=== PATIENT | female | born 1935 | race Caucasian/White ===

== ENCOUNTER 2017-04-13 22:23 | Emergency (ER) | payer MEDICARE ==
[~2017-04-13] VITALS: Ht 172.7 cm; Wt 43.6 kg
[~2017-04-13 22:23] MED LIST: COMMODE; ONDA4TAB59 PO; OXYC-134 PO
[2017-04-13 23:23] VITALS: BP 153/96
== END 2017-04-13 23:26 | disposition home or self-care (01) ==
LOC: ER 22:24
DX: I10 Essential (primary) hypertension (principal); M79.1 Myalgia; Z88.6 Allergy status to analgesic agent; Z88.8 Allergy status to other drugs, medicaments and biological substances; Z91.018 Allergy to other foods
CPT/HCPCS: 99284

== ENCOUNTER 2018-10-17 16:05 | Inpatient (IN) | payer MEDICARE ==
[~2018-10-17] VITALS: Ht 157.5 cm; Wt 40.9 kg
[2018-10-17] MEDS ORDERED: CefTRIAXone 2gm/D5W 50ml 50 ML IV ONE (16:25)
[2018-10-17] MEDS ORDERED: normal saline 1000ML IV soln IV ONE (16:25)
--- NOTE | 2018-10-17 17:00 | NUR ---
To CT via [facility].
[2018-10-17 17:07] LABS: BASOPHILS # (AUTO) 0.1 X10'3 (0-0.2); BASOPHILS % (AUTO) 0.6 % (0-1); EOSINOPHILS # (AUTO) 0.2 X10'3 (0-0.9); HEMATOCRIT 33.1 % (35.0-45.0); HEMOGLOBIN 10.7 g/dl (12.0-16.0); LYMPHOCYTES # (AUTO) 1.3 X10'3 (1.1-4.8); LYMPHOCYTES % (AUTO) 15.1 % (21-51); MEAN CORPUSCULAR HEMOGLOBIN 29.4 PG (27.0-31.0); MEAN CORPUSCULAR HGB CONC 32.5 g/dL (33.0-36.5); MEAN CORPUSCULAR VOLUME 90.4 FL (78-98); MEAN PLATELET VOLUME 7.1 FL (7.4-10.4); MONOCYTES # (AUTO) 1.2 X10'3 (0-0.9); MONOCYTES % (AUTO) 14.2 % (2-12); NEUTROPHILS % (AUTO) 68.1 % (42-75); PLATELET COUNT 367 X10'3 (140-440); RED BLOOD COUNT 3.66 X10'6 (4.20-5.60); RED CELL DISTRIBUTION WIDTH 15.1 % (11.5-14.5); WHITE BLOOD COUNT 8.8 X10'3 (4.5-11.0)
--- NOTE | 2018-10-17 17:09 | NUR ---
PT BACK FROM CT
[2018-10-17 17:10] LABS: CLARITY,URINE TURBID (Clear); COLOR,URINE STRAW (Yellow); GLUCOSE, URINE NEGATIVE (Neg); KETONES,URINE NEGATIVE (Neg); LEUKOCYTE ESTERASE ,URINE LARGE (Neg); NITRITES, URINE NEGATIVE (Neg); OCCULT BLOOD,URINE MODERATE (Neg); PROTEIN,URINE 100 mg/dl (Neg); UROBILINOGEN,URINE 0.2 E.U/dL (0.2-1.0)
[2018-10-17 17:13] LABS: UA COLLECTION TYPE FOLEY CATH
[2018-10-17 17:20] LABS: PARTIAL THROMBOPLASTIN TIME 26 SECONDS (22-32)
[2018-10-17 17:30] LABS: SQUAMOUS EPITHELIAL CELL,UR FEW /LPF (FEW)
[2018-10-17 17:31] LABS: MUCUS STRANDS NONE SEEN /LPF (Neg); TRANSITIONAL EPI CELLS,URINE FEW /HPF; WBC,URINE TNTC /HPF (0-4)
[2018-10-17 17:32] LABS: RENAL CELLS, URINE MODERATE /HPF
[2018-10-17 17:33] LABS: BACTERIA,URINE FEW /HPF (Neg); RBC,URINE 0-2 /HPF (0-2); YEAST FEW /HPF (NEGATIVE)
[2018-10-17 17:39] LABS: ALANINE AMINOTRANSFERASE 15 U/L (12-78); ALBUMIN 2.8 G/DL (3.4-5.0); ALBUMIN/GLOBULIN RATIO 0.5 (1.1-1.5); ALKALINE PHOSPHATASE 84 IU/L (46-116); ANION GAP 5 (8-16); ASPARTATE AMINO TRANSFERASE 11 U/L (10-37); BILIRUBIN,TOTAL 0.1 MG/DL (0.1-1.0); BLOOD UREA NITROGEN 34 MG/DL (7-18); BUN/CREATININE RATIO 28.3 (6.6-38.0); CALCIUM 9.1 MG/DL (8.5-10.1); CHLORIDE 104 MMOL/L (99-107); GLUCOSE 110 MG/DL (70-104); MAGNESIUM 2.1 MG/DL (1.5-2.4); POTASSIUM 4.3 MMOL/L (3.5-5.1); SODIUM 141 MMOL/L (135-145); TOTAL CARBON DIOXIDE 32.2 MMOL/L (24-32); eGFR 43 ML/MIN
[2018-10-17] MEDS ORDERED: magnesium 4gm in 100ml NS 100 ML IV PRN (18:15)
[2018-10-17] MEDS ORDERED: magnesium 2GM in 50ml NS 50 ML IV PRN (18:15)
[2018-10-17] MEDS ORDERED: acetaminophen 325mg tablet PO PRN ×2 (18:15)
[2018-10-17] MEDS ORDERED: potassium Cl 20 mEq SR tablet PO PRN ×2 (18:15)
[2018-10-17] MEDS ORDERED: magnesium Cl slow-release 64mg tablet PO PRN (18:15)
[2018-10-17] MEDS ORDERED: potassium CL 10mEq/100ml bag 100 ML IV PRN ×2 (18:15)
[2018-10-17] MEDS ORDERED: mag hydrox/Alum hydrox/simeth 30ml oral suspension PO PRN (18:15)
[2018-10-17] MEDS ORDERED: HYDROcodone/acetaminophen 5mg/325mg tablet PO PRN (18:15)
[2018-10-17] MEDS ORDERED: ondansetron/PF 4mg/2ml inj IV PRN (18:15)
[2018-10-17] MEDS ORDERED: magnesium hydroxide 30ml (MOM) UD suspension PO PRN (18:15)
[2018-10-17] MEDS: normal saline 1000ml 1,000 ML IV SCH (18:24)
[2018-10-17] MEDS ORDERED: ATR0.5NEB NEB (18:28)
[2018-10-17] MEDS ORDERED: HYDR-4383 PO (18:42)
[2018-10-17] MEDS ORDERED: MELA3TAB64 PO (18:42)
[2018-10-17] MEDS ORDERED: FURO-150 PO (18:42)
[2018-10-17] MEDS ORDERED: IPRA4AER IH (18:42)
[2018-10-17] MEDS ORDERED: OMEP40CA13 PO (18:42)
[2018-10-17] MEDS ORDERED: METH1TAB32 PO (18:42)
[2018-10-17] MEDS ORDERED: METO1TAB25 PO (18:42)
[2018-10-17] MEDS ORDERED: ESCI5TAB PO (18:42)
[2018-10-17] MEDS ORDERED: MAGN400O6 PO (18:42)
[2018-10-17] MEDS ORDERED: MEMA5TAB PO (18:42)
[2018-10-17] MEDS ORDERED: FLEC100T2 PO ×2 (18:42→19:29)
[2018-10-17] MEDS ORDERED: APIX2.5T PO (18:42)
[2018-10-17] MEDS ORDERED: NEUPHOSK PO (18:42)
--- NOTE | 2018-10-17 18:42 | NUR ---
PT O2 90% ON ROOM AIR. PLACED PT ON NASAL CANNULA AT 3L. O2 NOW 95%.
[2018-10-17] MEDS ORDERED: ESCI20TA PO (19:29)
[2018-10-17] MEDS ORDERED: ipratropium/albuterol 3ml nebule IH PRN (19:40)
[2018-10-17] MEDS ORDERED: heparin, porcine 5000 units/ml vial SQ SCH (20:00)
[2018-10-17] MEDS: memantine 5mg tablet PO SCH (20:14)
[2018-10-17] MEDS: apixaban 2.5mg tablet PO SCH (20:14)
[2018-10-17] MEDS ORDERED: temazepam 15mg capsule PO PRN (21:00)
--- NOTE | 2018-10-17 21:20 | NUR ---
Received report on patient from SACK SEWERBRET Ackerman. Patient to follow shortly.
--- NOTE | 2018-10-17 21:30 | NUR ---
Patient arrived to floor via gurney accompanied by her daughter. Patient settled into room and helped to BSC. Patient was unable to go at this time, so helped back into bed, and made comfortable.
[2018-10-17 21:45] VITALS: BP 115/72
[2018-10-17] MEDS: Melatonin 3mg tablet PO SCH (22:10)
[2018-10-18] VITALS: BP 139/10
[2018-10-18] MEDS: normal saline 1000ml 1,000 ML IV SCH ×2 (03:51→14:36)
[2018-10-18 04:50] LABS: BASOPHILS % (AUTO) 0.7 % (0-1); EOSINOPHILS # (AUTO) 0.2 X10'3 (0-0.9); EOSINOPHILS % (AUTO) 2.8 % (0-6); HEMATOCRIT 27.6 % (35.0-45.0); HEMOGLOBIN 8.8 g/dl (12.0-16.0); LYMPHOCYTES # (AUTO) 1.3 X10'3 (1.1-4.8); LYMPHOCYTES % (AUTO) 20.3 % (21-51); MEAN CORPUSCULAR HEMOGLOBIN 29.1 PG (27.0-31.0); MEAN CORPUSCULAR HGB CONC 31.9 g/dL (33.0-36.5); MEAN PLATELET VOLUME 7.1 FL (7.4-10.4); MONOCYTES # (AUTO) 0.8 X10'3 (0-0.9); MONOCYTES % (AUTO) 11.5 % (2-12); NEUTROPHILS # (AUTO) 4.3 X10'3 (1.8-7.7); NEUTROPHILS % (AUTO) 64.7 % (42-75); PLATELET COUNT 288 X10'3 (140-440); RED BLOOD COUNT 3.03 X10'6 (4.20-5.60); RED CELL DISTRIBUTION WIDTH 15.1 % (11.5-14.5); WHITE BLOOD COUNT 6.6 X10'3 (4.5-11.0)
[2018-10-18 05:01] LABS: ALANINE AMINOTRANSFERASE 10 U/L (12-78); ALBUMIN/GLOBULIN RATIO 0.5 (1.1-1.5); ALKALINE PHOSPHATASE 58 IU/L (46-116); ANION GAP 5 (8-16); ASPARTATE AMINO TRANSFERASE 7 U/L (10-37); BILIRUBIN,TOTAL 0.2 MG/DL (0.1-1.0); BLOOD UREA NITROGEN 25 MG/DL (7-18); BUN/CREATININE RATIO 29.4 (6.6-38.0); CHLORIDE 111 MMOL/L (99-107); CREATININE 0.85 MG/DL (0.40-0.90); GLUCOSE 83 MG/DL (70-104); MAGNESIUM 1.7 MG/DL (1.5-2.4); PHOSPHORUS 3.1 MG/DL (2.3-4.5); POTASSIUM 4.1 MMOL/L (3.5-5.1); SODIUM 144 MMOL/L (135-145); TOTAL CARBON DIOXIDE 27.8 MMOL/L (24-32); TOTAL PROTEIN 6.1 G/DL (6.4-8.2); eGFR 64 ML/MIN
--- NOTE | 2018-10-18 06:00 | NUR ---
Patient in room [facility]. I have received report from BRET Wright and had the opportunity to ask questions and assume patient care.
--- NOTE | 2018-10-18 06:45 | NUR ---
Problems reprioritized. Patient report given, questions answered & plan of care reviewed with Markos QUEEN.
[2018-10-18] MEDS: memantine 5mg tablet PO SCH ×2 (07:46→20:03)
[2018-10-18] MEDS: citalopram 20mg tablet PO SCH (07:46)
[2018-10-18] MEDS: flecainide 50mg tablet PO SCH (07:46)
[2018-10-18] MEDS: apixaban 2.5mg tablet PO SCH ×2 (07:46→20:03)
[2018-10-18] MEDS: K and/or MAG REPLACEMENT MC SCH (07:47)
[2018-10-18] MEDS: CefTRIAXone/D5W-Rocephin 1gm 50 ML IV SCH (07:47)
[2018-10-18 10:05] VITALS: BP 132/67
[2018-10-18 11:00] VITALS: BP 163/79
--- NOTE | 2018-10-18 13:16 | NUR ---
Problems reprioritized. Outcomes evaluated and updated.
--- NOTE | 2018-10-18 13:45 | NUR ---
Patient's family member called regarding patient's breathing. Can hear audible grunting, lt sided wheezing and congestion. Denies sob or any RD. SA02 94%. notified - Mrs. Lainez Room 347A. Complains of audible "grunting" sound when breathing. Expiratory wheezing, congestion on left. SA02 94%, No respiratory difficulty. Consider CXR? Family is concerned. [facility] - Surgical. Ext [phone]
[2018-10-18] MEDS ORDERED: ipratropium/albuterol 3ml nebule NEB PRN (14:00)
--- NOTE | 2018-10-18 14:50 | NUR ---
Malnutrition consult: Pt unsure if any wt loss but with decreased appetite per malnutrition risk screening with nursing. Unable to obtain information from pt as she has Alzheimer's dementia. Noted that patient's current BMI low at 16.5 documented as 62" tall with "emergency" wt of 40.91 kg. Pt with no reliable wt hx and with fluctuating documented height hx however more often documented at 58" tall; Using current documented weight and height of 58" new BMI more appropriate at 18.97. IBW is 40.9 kg if 58" tall, which is 100% of patient's current documented weight. Pt currently on regular diet with documented 50% likely meeting nutrient needs for geriatric age. Pt documented with severe weakness however no edema. Per H&P pt appears well nourished. Pt currently lacks a minimum of two criteria for malnutrition at this time. Will continue to follow. Addendum: 10/18/18 at [address] Amended: Links added.
[2018-10-18] MEDS ORDERED: iohexol 300mg/ml 100ml inj. ONE (15:18)
--- NOTE | 2018-10-18 18:10 | NUR ---
Patient in room HEAVEN 347A. I have received report from BRET Castro and had the opportunity to ask questions and assume patient care.
--- NOTE | 2018-10-18 18:11 | NUR ---
Problems reprioritized. Patient report given, questions answered & plan of care reviewed with BRET Devlin.
[2018-10-18 20:00] VITALS: BP 118/76
[2018-10-18] MEDS: Melatonin 3mg tablet PO SCH (20:03)
[2018-10-18] MEDS: lactobacillus rhamnosus 10,000 MMU CELLS/CAPSULE PO SCH (20:03)
[2018-10-19] VITALS: BP 159/90
[2018-10-19 01:48] VITALS: BP 159/90
[2018-10-19 04:54] LABS: BASOPHILS % (AUTO) 0.6 % (0-1); EOSINOPHILS # (AUTO) 0.2 X10'3 (0-0.9); EOSINOPHILS % (AUTO) 2.8 % (0-6); HEMOGLOBIN 8.5 g/dl (12.0-16.0); LYMPHOCYTES # (AUTO) 1.3 X10'3 (1.1-4.8); MEAN CORPUSCULAR HEMOGLOBIN 28.9 PG (27.0-31.0); MEAN CORPUSCULAR HGB CONC 31.6 g/dL (33.0-36.5); MEAN CORPUSCULAR VOLUME 91.5 FL (78-98); MONOCYTES # (AUTO) 0.8 X10'3 (0-0.9); MONOCYTES % (AUTO) 12.6 % (2-12); NEUTROPHILS # (AUTO) 4.2 X10'3 (1.8-7.7); PLATELET COUNT 272 X10'3 (140-440); RED BLOOD COUNT 2.95 X10'6 (4.20-5.60); RED CELL DISTRIBUTION WIDTH 15.4 % (11.5-14.5); WHITE BLOOD COUNT 6.5 X10'3 (4.5-11.0)
[2018-10-19 05:24] LABS: ALANINE AMINOTRANSFERASE 12 U/L (12-78); ALBUMIN/GLOBULIN RATIO 0.5 (1.1-1.5); ALKALINE PHOSPHATASE 59 IU/L (46-116); ANION GAP 7 (8-16); ASPARTATE AMINO TRANSFERASE 7 U/L (10-37); BILIRUBIN,TOTAL 0.1 MG/DL (0.1-1.0); BLOOD UREA NITROGEN 12 MG/DL (7-18); BUN/CREATININE RATIO 23.5 (6.6-38.0); CHLORIDE 111 MMOL/L (99-107); CREATININE 0.51 MG/DL (0.40-0.90); GLUCOSE 74 MG/DL (70-104); MAGNESIUM 1.7 MG/DL (1.5-2.4); PHOSPHORUS 2.5 MG/DL (2.3-4.5); POTASSIUM 3.6 MMOL/L (3.5-5.1); SODIUM 144 MMOL/L (135-145); TOTAL CARBON DIOXIDE 26.2 MMOL/L (24-32); TOTAL PROTEIN 5.9 G/DL (6.4-8.2); eGFR > 90 ML/MIN
[2018-10-19 06:00] VITALS: BP 140/52
--- NOTE | 2018-10-19 06:15 | NUR ---
Problems reprioritized. Patient report given, questions answered & plan of care reviewed with BRET Almaguer.
--- NOTE | 2018-10-19 06:26 | NUR ---
Patient in room [facility] 347. I have received report from Claus QEUEN and had the opportunity to ask questions and assume patient care.
[2018-10-19] MEDS: CefTRIAXone/D5W-Rocephin 1gm 50 ML IV SCH (07:50)
[2018-10-19] MEDS: apixaban 2.5mg tablet PO SCH ×2 (07:51→20:21)
[2018-10-19] MEDS: memantine 5mg tablet PO SCH ×2 (07:51→20:21)
[2018-10-19] MEDS: normal saline 1000ml 1,000 ML IV SCH ×2 (07:51→23:36)
[2018-10-19] MEDS: flecainide 50mg tablet PO SCH (07:51)
[2018-10-19] MEDS: lactobacillus rhamnosus 10,000 MMU CELLS/CAPSULE PO SCH ×2 (07:52→20:21)
[2018-10-19] MEDS: citalopram 20mg tablet PO SCH (07:52)
[2018-10-19] MEDS: K and/or MAG REPLACEMENT MC SCH (08:00)
[2018-10-19 11:00] VITALS: BP 143/90
[2018-10-19 11:15] LABS: FERRITIN 44 NG/ML (8-252)
[2018-10-19 11:29] LABS: TOTAL IRON BINDING CAPACITY 283 UG/DL (259-388)
[2018-10-19 11:35] LABS: % IRON SATURATION 19 % (11-46); IRON 54 UG/DL (49-151)
--- NOTE | 2018-10-19 15:00 | NUR ---
Patient in room [facility] 347. I have received report from Rosina QUEEN and had the opportunity to ask questions and assume patient care.
--- NOTE | 2018-10-19 15:47 | NUR ---
Problems reprioritized. Patient report given, questions answered & plan of care reviewed with Ami QUEEN.
[2018-10-19 18:00] VITALS: BP 133/71
--- NOTE | 2018-10-19 18:00 | NUR ---
Problems reprioritized. Patient report given, questions answered & plan of care reviewed with Claus QUEEN.
--- NOTE | 2018-10-19 18:25 | NUR ---
Patient in room [facility] 347. I have received report from BRET Mueller and had the opportunity to ask questions and assume patient care.
[2018-10-19] MEDS: Melatonin 3mg tablet PO SCH (20:21)
[2018-10-20] VITALS: BP 160/87
[2018-10-20 04:59] LABS: BASOPHILS % (AUTO) 0.6 % (0-1); EOSINOPHILS # (AUTO) 0.2 X10'3 (0-0.9); EOSINOPHILS % (AUTO) 2.7 % (0-6); HEMATOCRIT 26.9 % (35.0-45.0); HEMOGLOBIN 8.6 g/dl (12.0-16.0); LYMPHOCYTES # (AUTO) 1.1 X10'3 (1.1-4.8); LYMPHOCYTES % (AUTO) 17.2 % (21-51); MEAN CORPUSCULAR HEMOGLOBIN 28.8 PG (27.0-31.0); MEAN CORPUSCULAR HGB CONC 32.1 g/dL (33.0-36.5); MONOCYTES # (AUTO) 0.6 X10'3 (0-0.9); MONOCYTES % (AUTO) 9.8 % (2-12); NEUTROPHILS # (AUTO) 4.5 X10'3 (1.8-7.7); NEUTROPHILS % (AUTO) 69.7 % (42-75); PLATELET COUNT 267 X10'3 (140-440); RED BLOOD COUNT 2.99 X10'6 (4.20-5.60); RED CELL DISTRIBUTION WIDTH 15.2 % (11.5-14.5); WHITE BLOOD COUNT 6.4 X10'3 (4.5-11.0)
[2018-10-20 05:16] LABS: ALANINE AMINOTRANSFERASE 11 U/L (12-78); ALBUMIN 2.1 G/DL (3.4-5.0); ALBUMIN/GLOBULIN RATIO 0.5 (1.1-1.5); ALKALINE PHOSPHATASE 59 IU/L (46-116); ANION GAP 7 (8-16); ASPARTATE AMINO TRANSFERASE 7 U/L (10-37); BILIRUBIN,TOTAL 0.2 MG/DL (0.1-1.0); BLOOD UREA NITROGEN 12 MG/DL (7-18); BUN/CREATININE RATIO 20.7 (6.6-38.0); CHLORIDE 111 MMOL/L (99-107); CREATININE 0.58 MG/DL (0.40-0.90); GLUCOSE 71 MG/DL (70-104); MAGNESIUM 1.7 MG/DL (1.5-2.4); PHOSPHORUS 2.6 MG/DL (2.3-4.5); POTASSIUM 3.4 MMOL/L (3.5-5.1); SODIUM 144 MMOL/L (135-145); TOTAL CARBON DIOXIDE 25.8 MMOL/L (24-32); TOTAL PROTEIN 6.1 G/DL (6.4-8.2); eGFR > 90 ML/MIN
--- NOTE | 2018-10-20 06:28 | NUR ---
Problems reprioritized. Patient report given, questions answered & plan of care reviewed with BRET Cardenas.
--- NOTE | 2018-10-20 06:30 | NUR ---
Patient in room [facility] 347. I have received report from Claus QUEEN and had the opportunity to ask questions and assume patient care.
[2018-10-20 07:34] VITALS: BP 156/96
[2018-10-20] MEDS: K and/or MAG REPLACEMENT MC SCH (08:00)
[2018-10-20] MEDS: CefTRIAXone/D5W-Rocephin 1gm 50 ML IV SCH (08:42)
[2018-10-20] MEDS: apixaban 2.5mg tablet PO SCH (08:47)
[2018-10-20] MEDS: flecainide 50mg tablet PO SCH (08:48)
[2018-10-20] MEDS: memantine 5mg tablet PO SCH (08:48)
[2018-10-20] MEDS: lactobacillus rhamnosus 10,000 MMU CELLS/CAPSULE PO SCH (08:48)
[2018-10-20] MEDS: citalopram 20mg tablet PO SCH (08:49)
--- NOTE | 2018-10-20 10:06 | NUR ---
Initial: Pt admit with UTI, metabolic encephalopathy, and dehydration. Pt improving and more alert per MD notes, however still confused r/t hx Alzheimer dementia. Pt s/p BSS 10/[address] [facility] to continue current diet order as pt is swallowing well. Pt documented with 25% PO intake however up to 75% at dinner last night. LBM 10/19. No edema or wounds. No nutrition diagnosis at this time. Will continue to follow and monitor need for ONS pending trends in PO intake. Recommendations: 1) Continue regular diet 2) Monitor need for ONS 3) Wt per rx Addendum: 10/20/18 at [address] Amended: Links added.
[2018-10-20 11:25] VITALS: BP 157/91
--- NOTE | 2018-10-20 13:45 | NUR ---
patient discharge teaching was done with daughter by bedside and verbal understanding was expressed, Patient understand what medication to stop at this time and discharging physician is also the patient primary physician. Patient IV was taken out and inspect and was whole and intact upon DC. Patient left with all belongings and was taken to lobby via wheel chair with PCT.
== END 2018-10-20 15:05 | disposition home health service (06) | DRG 70 ==
LOC: ER 16:07 → SUR 3N 21:21 → CMPBEDREQ 21:59 → SUR 3N 10-20 08:48
PROVIDERS: ADMIT Family Medicine; ATTEND Family Medicine
DX: G93.41 Metabolic encephalopathy (principal); E43 Unspecified severe protein-calorie malnutrition; J96.91 Respiratory failure, unspecified with hypoxia; N17.9 Acute kidney failure, unspecified; Z68.1 Body mass index [BMI] 19.9 or less, adult; E03.9 Hypothyroidism, unspecified; E86.0 Dehydration; E87.6 Hypokalemia; F02.80 Dementia in other diseases classified elsewhere, unspecified severity, without behavioral disturbance, psychotic disturbance, mood disturbance, and anxiety; G30.9 Alzheimer's disease, unspecified; K21.9 Gastro-esophageal reflux disease without esophagitis; D64.9 Anemia, unspecified; F32.9 Major depressive disorder, single episode, unspecified; G89.29 Other chronic pain; M54.9 Dorsalgia, unspecified; I11.0 Hypertensive heart disease with heart failure; I48.0 Paroxysmal atrial fibrillation; J44.9 Chronic obstructive pulmonary disease, unspecified; Z66 Do not resuscitate; Z86.711 Personal history of pulmonary embolism; Z87.440 Personal history of urinary (tract) infections; Z88.5 Allergy status to narcotic agent; Z88.8 Allergy status to other drugs, medicaments and biological substances; Z91.018 Allergy to other foods; Z79.899 Other long term (current) drug therapy
CPT/HCPCS: 36415; 70470; 71045; 71250; 74176; 80053; 81001; 82728; 83540; 83550; 83605; 83735; 84100; 84145; 84443; 85025; 85610; 85730; 87040; 87081; 87088; 92508; 92616; 93005; 94760; 96365; 97110; 97116; 97161; 97530; 99285; G0378; J0696; J7030; Q9967

== ENCOUNTER 2018-11-13 13:14 | Emergency (ER) | payer MEDICARE ==
[~2018-11-13] VITALS: Ht 147.3 cm; Wt 40.8 kg
[~2018-11-13 13:14] MED LIST changes: +APIX2.5T PO; +ATR0.5NEB NEB; +ESCI20TA PO; +FLEC100T2 PO; +HYDR-4383 PO; +IPRA4AER IH; +MAGN400O6 PO; +MELA3TAB64 PO; +MEMA5TAB PO; +METH1TAB32 PO; +METO1TAB25 PO; +NEUPHOSK PO; -ONDA4TAB59 PO; -OXYC-134 PO
[2018-11-13 14:19] LABS: BASOPHILS % (AUTO) 0.6 % (0-1); EOSINOPHILS # (AUTO) 0.2 X10'3 (0-0.9); EOSINOPHILS % (AUTO) 2.2 % (0-6); HEMATOCRIT 27.7 % (35.0-45.0); HEMOGLOBIN 8.9 g/dl (12.0-16.0); LYMPHOCYTES # (AUTO) 1.1 X10'3 (1.1-4.8); LYMPHOCYTES % (AUTO) 15.7 % (21-51); MEAN CORPUSCULAR HEMOGLOBIN 28.7 PG (27.0-31.0); MEAN CORPUSCULAR HGB CONC 32.2 g/dL (33.0-36.5); MEAN PLATELET VOLUME 6.9 FL (7.4-10.4); MONOCYTES # (AUTO) 0.8 X10'3 (0-0.9); MONOCYTES % (AUTO) 12.3 % (2-12); NEUTROPHILS # (AUTO) 4.7 X10'3 (1.8-7.7); NEUTROPHILS % (AUTO) 69.2 % (42-75); PLATELET COUNT 294 X10'3 (140-440); RED BLOOD COUNT 3.11 X10'6 (4.20-5.60); RED CELL DISTRIBUTION WIDTH 16.2 % (11.5-14.5); WHITE BLOOD COUNT 6.9 X10'3 (4.5-11.0)
[2018-11-13 14:29] LABS: ALANINE AMINOTRANSFERASE 13 U/L (12-78); ALBUMIN 2.5 G/DL (3.4-5.0); ALBUMIN/GLOBULIN RATIO 0.5 (1.1-1.5); ALKALINE PHOSPHATASE 76 IU/L (46-116); ANION GAP 6 (8-16); ASPARTATE AMINO TRANSFERASE 12 U/L (10-37); BILIRUBIN,TOTAL 0.2 MG/DL (0.1-1.0); BLOOD UREA NITROGEN 25 MG/DL (7-18); BUN/CREATININE RATIO 27.8 (6.6-38.0); CALCIUM 8.8 MG/DL (8.5-10.1); CHLORIDE 111 MMOL/L (99-107); GLUCOSE 104 MG/DL (70-104); POTASSIUM 4.1 MMOL/L (3.5-5.1); SODIUM 148 MMOL/L (135-145); TOTAL CARBON DIOXIDE 31.3 MMOL/L (24-32); TOTAL PROTEIN 7.1 G/DL (6.4-8.2); eGFR 60 ML/MIN
[2018-11-13 14:30] LABS: CLARITY,URINE SLIGHTLY CLOUDY (Clear); COLOR,URINE YELLOW (Yellow); GLUCOSE, URINE NEGATIVE (Neg); KETONES,URINE NEGATIVE (Neg); LEUKOCYTE ESTERASE ,URINE MODERATE (Neg); NITRITES, URINE NEGATIVE (Neg); OCCULT BLOOD,URINE LARGE (Neg); PROTEIN,URINE 100 mg/dl (Neg); UA COLLECTION TYPE STRAIGHT CATH; UROBILINOGEN,URINE 0.2 E.U/dL (0.2-1.0)
[2018-11-13 14:49] LABS: BACTERIA,URINE 1+ /HPF (Neg); MUCUS STRANDS NONE SEEN /LPF (Neg); SQUAMOUS EPITHELIAL CELL,UR FEW /LPF (FEW); WBC,URINE TNTC /HPF (0-4)
[2018-11-13 15:21] VITALS: BP 150/75
[2018-11-13] MEDS ORDERED: CEPH500C5 PO (15:26)
== END 2018-11-13 15:39 | disposition home or self-care (01) ==
LOC: ER 13:15
DX: N39.0 Urinary tract infection, site not specified (principal); F03.90 Unspecified dementia, unspecified severity, without behavioral disturbance, psychotic disturbance, mood disturbance, and anxiety; I48.91 Unspecified atrial fibrillation; J44.9 Chronic obstructive pulmonary disease, unspecified; E07.9 Disorder of thyroid, unspecified; G89.29 Other chronic pain; Z86.711 Personal history of pulmonary embolism; Z88.5 Allergy status to narcotic agent; Z91.018 Allergy to other foods; Z88.8 Allergy status to other drugs, medicaments and biological substances; Z79.899 Other long term (current) drug therapy
CPT/HCPCS: 36415; 80053; 81001; 85025; 87088; 99284; P9612